=== PATIENT | female | born 2000 | race Caucasian/White ===

== ENCOUNTER 2022-03-10 14:08 | Inpatient (IN) ==
[2022-03-10] MEDS ORDERED: ONDANSETRON 4 MG/2 ML VIAL IV PRN (14:18)
[2022-03-10] MEDS ORDERED: CARBOPROST TROMETHAMINE 250 MCG/ML AMP IM PRN (14:18)
[2022-03-10] MEDS ORDERED: METHYLERGONOVINE 0.2 MG/1 ML AMP IM PRN (14:18)
[2022-03-10] MEDS ORDERED: TRANEXAMIC ACID 1,000 MG in SODIUM CHLORIDE 0.9% 100 ML IV PRN (14:18)
[2022-03-10] MEDS ORDERED: miSOPROStoL 200 MCG TABLET RECTAL PRN (14:18)
[2022-03-10] MEDS ORDERED: OXYTOCIN/LR 20 UNIT/1,000 ML BAG IV ONE (14:18)
[2022-03-10 15:29] LABS: Basophils % 0.3 % (0.0-0.8); Eosinophils % 0.2 % (0.00-10.9); Hematocrit 34.9 VOL% (35.7-47.0); Hemoglobin 11.4 GM/DL (12.0-16.0); Immature Granulocytes % 0.6 %; Immature Granulocytes Absolute 0.05 #; Mean Corpuscular HGB Conc 32.7 GM/DL (32-36); Mean Corpuscular Volume 90.4 FL (87-102); Mean Platelet Volume 10.4 FL (9.6-12.0); Monocytes # 0.5 10*3/uL (0.11-0.8); Monocytes % 5.6 % (1.7-12.7); Neutrophils % 70.3 % (38.7-73.9); Platelet Count 305 T/CUMM (130-400); Red Blood Count 3.86 MC/CUMM (3.8-5.5); Red Cell Distribution Width 13.4 % (9.3-17.3); White Blood Count 8.6 T/CUMM (4-12)
[2022-03-10 15:53] LABS: Albumin 2.6 G/DL (3.4-5.0); Bilirubin,Total 0.4 MG/DL (0.20-1.00); Calcium 9.1 MG/DL (8.5-10.1); Osmolality,Calculated 275.7 MOS/KG (273-304); Potassium 3.9 MMOL/L (3.5-5.1); Total Protein 6.4 G/DL (6.4-8.2)
[2022-03-10] MEDS: LACTATED RINGERS 1,000 ML IV SCH (18:48)
[2022-03-10] MEDS ORDERED: OXYTOCIN/LR 20 UNIT/1,000 ML BAG IV SCH (19:00)
[2022-03-10] MEDS ORDERED: ACETAMINOPHEN 500 MG TABLET PO PRN (22:17)
[2022-03-10] MEDS ORDERED: MEPERIDINE 50 MG/1 ML VIAL IV PRN (22:17)
[2022-03-10] MEDS ORDERED: BUTORPHANOL 1 MG/ML VIAL IV PRN (22:17)
[2022-03-11] MEDS: BUTORPHANOL 2 MG/ML VIAL IV PRN ×2 (00:32→02:32)
[2022-03-11] MEDS: LACTATED RINGERS 1,000 ML IV SCH ×2 (02:31→03:33)
[2022-03-11] MEDS ORDERED: diphenhydrAMINE 50 MG/1 ML VIAL IV PRN ×2 (02:35)
[2022-03-11] MEDS ORDERED: ONDANSETRON 4 MG/2 ML VIAL IV ONE (02:35)
[2022-03-11] MEDS ORDERED: ePHEDrine 50 MG/ML VIAL IV PRN (02:35)
[2022-03-11] MEDS ORDERED: LACTATED RINGERS 250 ML IV PRN (02:35)
[2022-03-11] MEDS ORDERED: PROMETHAZINE 25 MG/1 ML VIAL IM ONE (02:35)
[2022-03-11] MEDS ORDERED: NALOXONE 0.4 MG/ML VIAL IV PRN (02:35)
[2022-03-11] MEDS ORDERED: hydrOXYzine HCL 25 MG/1 ML VIAL IM PRN (02:35)
[2022-03-11] MEDS ORDERED: CITRIC ACID/SODIUM CITRATE 30 ML UDCUP PO ONE (02:39)
[2022-03-11] MEDS ORDERED: FAMOTIDINE 20 MG/2 ML VIAL IV ONE (02:39)
[2022-03-11] MEDS ORDERED: LACTATED RINGERS 1,000 ML IV SCH (03:00)
[2022-03-11] MEDS ORDERED: fentaNYL 2 MCG/ROPIV 0.2% EPID 100 ML EPIDURAL SCH (03:00)
[2022-03-11 07:41] LABS: Cord Venous Blood HCO3 22.7 MMOL/L; Cord Venous Blood PCO2 42.4 MMHG; Cord Venous Blood PO2 26.5
[2022-03-11] MEDS ORDERED: RHO(D) IMMUNE GLOBULIN 300 MCG SYRINGE IM ONE (07:47)
[2022-03-11] MEDS ORDERED: ACETAMINOPHEN 325 MG TABLET PO PRN (07:47)
[2022-03-11] MEDS ORDERED: OXYTOCIN/LR 20 UNIT/1,000 ML BAG IV ONE (07:47)
[2022-03-11] MEDS ORDERED: MEASLES/MUMPS/RUBELLA VACCINE 0.5 ML VIAL SUBCUT ONE (07:47)
[2022-03-11] MEDS ORDERED: ONDANSETRON 4 MG/2 ML VIAL IV PRN (07:47)
[2022-03-11] MEDS ORDERED: BISACODYL 10 MG SUPP RECTAL PRN (07:47)
[2022-03-11] MEDS ORDERED: BENZOCAINE 20%/MENTHOL 0.5% SPRAY 56 GM CAN TOP PRN (07:47)
[2022-03-11] MEDS ORDERED: HYDROCORTISONE 2.5% RECTAL CREAM 30 GM TUBE TOP PRN (07:47)
[2022-03-11] MEDS ORDERED: LANOLIN 50% CREAM 0.3 OZ TUBE TOP PRN (07:47)
[2022-03-11] MEDS ORDERED: WITCH HAZEL PADS 100/JAR TOP PRN (07:47)
[2022-03-11] MEDS ORDERED: DIPH/TET/ACEL PERT BOOSTER VACCINE 0.5 ML VIAL IM ONE (07:47)
[2022-03-11] MEDS ORDERED: oxyCODONE/ACETAMINOPHEN 5-325 MG TABLET PO PRN ×2 (07:47)
[2022-03-11] MEDS: DOCUSATE SODIUM 100 MG CAPSULE PO SCH ×2 (09:41→21:21)
[2022-03-11] MEDS: IBUPROFEN 800 MG TABLET PO PRN (15:23)
[2022-03-12 05:40] LABS: Basophils % 0.3 % (0.0-0.8); Eosinophils % 0.4 % (0.00-10.9); Hematocrit 33.2 VOL% (35.7-47.0); Hemoglobin 10.8 GM/DL (12.0-16.0); Immature Granulocytes % 0.3 %; Immature Granulocytes Absolute 0.03 #; Lymphocytes # 2.2 10*3/uL (1.4-4.0); Lymphocytes % 23.1 % (21.3-54.2); Mean Corpuscular HGB Conc 32.5 GM/DL (32-36); Mean Corpuscular Volume 91.7 FL (87-102); Monocytes # 0.6 10*3/uL (0.11-0.8); Neutrophils % 69.9 % (38.7-73.9); Platelet Count 260 T/CUMM (130-400); Red Blood Count 3.62 MC/CUMM (3.8-5.5); Red Cell Distribution Width 13.5 % (9.3-17.3); White Blood Count 9.7 T/CUMM (4-12)
[2022-03-12] MEDS: DOCUSATE SODIUM 100 MG CAPSULE PO SCH (11:04)
[2022-03-12] MEDS: IBUPROFEN 800 MG TABLET PO PRN (11:04)
[2022-03-12 15:16] VITALS: BP 97/55
== END 2022-03-12 21:50 | disposition home or self-care (01) | DRG 807 ==
LOC: N.LD 14:08 → N.OB 03-11 10:01
PROVIDERS: ADMIT Obstetrics & Gynecology; ATTEND Obstetrics & Gynecology